=== PATIENT | female | born 1990 | race Caucasian/White ===

== ENCOUNTER → 2018-02-13 20:11 | Outpatient (CLI) | payer BC, SELFPAY ==
[2018-02-17 12:53] LABS: HPV Reflexed? NOT INDICATED
== END ==
PROVIDERS: Referring Provider Obstetrics & Gynecology; Visit Provider Obstetrics & Gynecology
DX: Z12.4 Encounter for screening for malignant neoplasm of cervix (principal)
CPT/HCPCS: 88175; G0145

== ENCOUNTER → 2018-05-08 15:59 | Outpatient (CLI) | payer BC, SELFPAY ==
[2018-05-08 18:10] LABS: Chlamydia Trachomatis by PCR Negative (Negative); Neisserai gonorrhoeae by PCR Negative (Negative); Probe Check PASS; Sample Adequacy Control PASS; Specimen Processing Control PASS
--- OUTSIDE RECORDS SUMMARY | 2018-07-11 04:01 | XMS RPT_ITS ---
:1990 Author Organization OHIP Care Team Providers Name Role Phone Clarisa Mendez Attending Unavailable Clarisa Mendez Referring Unavailable Clarisa Mendez Attending Unavailable Clarisa Mendez Referring Unavailable PROBLEMS PROBLEMS DATE TYPE CONDITION / CODE ATTENDING STATUS SOURCE 05/08/2018 Unknown Z11.3 - Encounter Clarisa Mendez Active [facility] for screening for Community infections with a Hospital predominantly Repository sexual mode of transmission / Z11.3(ICD-10) 02/14/2018 Unknown Z12.4 - Encounter Clarisa Mendez for screening for Community malignant neoplasm Hospital of cervix / Repository Z12.4(ICD-10) PROCEDURES PROCEDURES No Procedure Records FoundRESULTS RESULTS CT/NG [facility] BY PCR Collected: 05/08/2018 Status: F Source: [facility] 1:45 PM [facility] [place] TYPE CODE TESTS RESULT OUT OF RANGE REFERENCE UNITS LAB L8200.2100 Negative Normal Chlam Negative Trac PCR LAB L8200.2200 Negative Normal NG by Negative PCR Performed By: #### L8200.2000 #### [facility] [address] [place], [address] PAP I-G W/RFX HRHPV Collected: 02/13/2018 Status: F Source: [facility] 4:15 PM [facility] Order Comment: CYTOLOGY INFORMATION: - CLINICAL INFORMATION: - DATE LMP/MENOPAUSE: 01/14/18 LMP - COLLECTION VIAL: Thin Prep Vial - PRODUCT SUPPORT TECHNICIAN SOURCE: CERVICAL/ENDOCERVICAL - COLLECTION TECHNIQUE: BRUSH/SPATULA Specimen Comment: [id number] Specimen Comment: Source.............Cervix;Endocervix Specimen Comment: LMP / Prev Treat...TST=[id number] Specimen Comment: No. of containers..01 ThinPrep Vial TYPE CODE TESTS RESULT OUT OF RANGE REFERENCE UNITS LAB L7400.0800 . Normal DIAGN Comment Result Comment: NEGATIVE FOR INTRAEPITHELIAL LESION AND MALIGNANCY. THIS SPECIMEN WAS RESCREENED PART OF OUR VALVE INSERTER PROGRAM. LAB L7400.0900 . Normal ADEQ Comment Result Comment: Satisfactory for evaluation. Endocervical and/or squamous metaplastic cells (endocervical component) are present. LAB L7400.1400 . Normal PERFORM Comment Result Comment: Darlene Avina, Voucher Examiner (ASCP) LAB L7400.1500 . Normal QC Comment REV Result Comment: Sandrine Brown, Supervisory Voucher Examiner (ASCP) LAB L7400.2575 . Normal TEST METHOD Comment Result Comment: This liquid based ThinPrep(R) pap test was screened with the use of an image guided system. LAB L7400.2600 . Normal . COMM LAB L7400.2700 . Normal PAPSMR Comment Result Comment: The Pap smear is a screening test designed to aid in the detection of premalignant and malignant conditions of the uterine cervix. It is not a diagnostic procedure and should not be used as the sole means of detecting cervical cancer. Both false-positive and false-negative reports do occur. LAB L7400.2800 . Normal HPV RFLX Comment Result Comment: The HPV DNA reflex criteria were not met with this specimen result therefore, no HPV testing was performed. Performed at: [address] [id number] Acid Changer: Sydnie Ta MD, Phone: [phone] Performed By: #### L7400.0350 #### [facility] (refer to report for specific site) refer to report for address and phone number ALLERGIES ALLERGIES No Allergies Records FoundENCOUNTERS ENCOUNTERS ADMIT/DISCHARGE ACCOUNT ADMITTING ENCOUNTER LOCATION SOURCE NUMBER CLASS 05/08/2018 [id number] Ambulatory [place] 2 [facility] ing:[facility] Repository 02/13/2018 [id number] Ambulatory [place] [place] 3 [facility] ing:[facility] Repository PAYERS PAYERS ENCOUNTER GUARANTOR PAYER SUBSCRIBER SOURCE 05/08/2018 RUSSELL Primary ZABRINA S [place] [id number] DIAZ Insurance:ANTHEMPolic [facility]ODERDOB[facility] Number[facility] [id number] [facility] [id number]: 330 [id number] Repository [phone] () Date:[id number] [id number] [place] [address] [id number]: 05/08/2018 Secondary NOT GIVENUNK Pr[facility] Insurance:SELF PAY [facility] Number: Effective Repository Date:2018-05-08 02/13/2018 [facility] Primary ZABRINA S [place] [id number] DIAZ Insurance:ANTHEMPolic YODERUNK [facility] Number: [facility] [id number]: 330 [id number] Repository [phone] () Date:[id number] [id number] [place] [address] [id number]: 02/13/2018 Secondary NOT GIVENUNK Pr[facility] Insurance:SELF PAY [facility] Number: Effective Repository Date:2018-02-13
== END ==
PROVIDERS: Referring Provider Obstetrics & Gynecology; Visit Provider Obstetrics & Gynecology
DX: Z11.3 Encounter for screening for infections with a predominantly sexual mode of transmission (principal)
CPT/HCPCS: 87491; 87591

== ENCOUNTER → 2018-05-22 15:32 | Outpatient (CLI) | payer BC, SELFPAY ==
[2018-05-22 17:31] LABS: Absolute Lymphocyte Count 2.44 X10^3/ul (0.83-4.51); Absolute Neutrophil Count 6.4 X10^3/uL (2.0-7.7); Basophil# 0.02 X10^3/uL; Basophil% 0.2 % (0-1); Eosinophil# 0.04 X10^3/uL; Eosinophils% 0.4 % (0-5); Hematocrit 40.7 % (37-47); Hemoglobin 13.3 g/dl (12.0-15.0); Lymphocyte # 2.44 X10^3/ul (4.0); Lymphocyte % 25.9 % (19-41); Mean Corp Hgb Conc 32.7 g/gl (32-36); Mean Corpuscular Hgb 28.7 pg (27.0-32.0); Mean Corpuscular Volume 87.9 fL (81-99); Mean Platelet Vol. 11.3 fl (6.2-12.0); Monocyte# 0.51 X10^3/uL; Monocyte% 5.4 % (0-10); Neutrophil # 6.38 X10^3/uL (2.7-7.7); Neutrophil % 67.8 % (47-70); Platelet Count 272 K/mm3 (150-450); RBC Distribution Width CV 12.5 % (11.6-14.6); RBC Distribution Width SD 39.3 fl (35.1-43.9); Red Blood Count 4.63 M/mm3 (4.2-5.4); White Blood Count 9.4 K/mm3 (4.4-11.0)
[2018-05-22 17:32] LABS: POSITIVE COUNT NO; POSITIVE DIFFERENTIAL NO; POSITIVE MORPHOLOGY NO
[2018-05-22 17:51] LABS: Thyroid Stim Hormone (TSH) 2.98 uIU/mL (0.358-3.74)
[2018-05-22 18:28] LABS: Color, Urine Yellow (Yellow); Glucose, Dipstick Normal (Normal); Ketone-Dipstick Negative (Negative); Leukocyte Esterase-Dipstick 100 /ul (Negative); Nitrite-Dipstick Negative (Negative); Occult Blood-Urine 10 /ul (Negative); Protein-Dipstick Negative (Negative); Specific Gravity, Urine 1.015 (1.002-1.030); Urine Bilirubin Dipstick Negative (Negative); Urine Clarity Cloudy (Clear); Urine Urobilinogen Normal (Normal)
[2018-05-22 18:33] LABS: HIV - WCH Non-Reactive (Nonreactive); Rubella IgG 103.8 IU/mL
[2018-05-25 07:56] LABS: HEPATITIS B SURFACE AG Negative (Negative); Hep C Antibodies <0.1 s/co ratio (0.0-0.9); V-Zoster IgG (Immunity) < 135 index (Immune >165)
[2018-05-25 23:33] LABS: Prenatal RPR NONREACTIVE (NONREACTIVE)
== END ==
PROVIDERS: Visit Provider Obstetrics & Gynecology
DX: Z34.81 Encounter for supervision of other normal pregnancy, first trimester (principal)
CPT/HCPCS: 36415; 81002; 84443; 85025; 86703; 86762; 86787; 86803; 87340

== ENCOUNTER → 2018-10-06 | Outpatient (CLI) | payer BC, SELFPAY ==
[2018-10-06 15:37] LABS: Hematocrit 35.3 % (37-47); Hemoglobin 11.6 g/dl (12.0-15.0); Mean Corp Hgb Conc 32.9 g/gl (32-36); Mean Corpuscular Hgb 28.9 pg (27.0-32.0); Mean Corpuscular Volume 87.8 fL (81-99); Mean Platelet Vol. 10.5 fl (6.2-12.0); Platelet Count 279 K/mm3 (150-450); RBC Distribution Width CV 13.1 % (11.6-14.6); RBC Distribution Width SD 40.6 fl (35.1-43.9); Red Blood Count 4.02 M/mm3 (4.2-5.4); White Blood Count 10.8 K/mm3 (4.4-11.0)
[2018-10-06 15:41] LABS: Glucose Challenge Gest 1H 50g 147 mg/dL (70-140)
[2018-10-06 15:42] LABS: Scan Indicated on CBC? Y/N NO
== END | disposition home or self-care (01) ==
LOC: WOBLAB 13:15
PROVIDERS: Visit Provider Obstetrics & Gynecology
DX: Z34.83 Encounter for supervision of other normal pregnancy, third trimester (principal)
CPT/HCPCS: 36415; 82950; 85027

== ENCOUNTER → 2018-10-20 | Outpatient (CLI) | payer BC, SELFPAY ==
[2018-10-20 11:42] LABS: Glucose GTT-Gestation. Fasting 79 mg/dL (<105)
[2018-10-20 13:19] LABS: Glucose GTT-Gestational 2 Hr 116 mg/dL (<165)
[2018-10-20 13:27] LABS: Glucose GTT-Gestational 1 Hr 136 mg/dL (<190)
[2018-10-20 14:27] LABS: Glucose GTT-Gestational 3 Hr 93 L (<145)
== END | disposition home or self-care (01) ==
LOC: LAB 10:09
PROVIDERS: Referring Provider Obstetrics & Gynecology; Visit Provider Obstetrics & Gynecology
DX: O24.912 Unspecified diabetes mellitus in pregnancy, second trimester (principal); Z3A.00 Weeks of gestation of pregnancy not specified
CPT/HCPCS: 82951; 82952

== ENCOUNTER 2018-11-25 19:11 | Outpatient (CLI) | payer BC, SELFPAY ==
[2018-11-25 19:53] VITALS: BMI 26.6
[2018-11-25 20:30] LABS: ROM Internal Control Test YES-OK TO RESULT pt. (Internal QC); ROM Patient Test Negative (Negative)
[2018-11-25 20:59] LABS: Mucous, Urine 0 SEEN /hpf (<or=2+); Red Blood Cells-Urine 0 SEEN /hpf (0-5)
[2018-11-25 21:07] LABS: Color, Urine Yellow (Yellow); Glucose, Dipstick Normal (Normal); Ketone-Dipstick 15 mg/dl (Negative); Leukocyte Esterase-Dipstick 100 /ul (Negative); Nitrite-Dipstick Negative (Negative); Occult Blood-Urine Negative /ul (Negative); Protein-Dipstick Negative (Negative); Urine Bilirubin Dipstick Negative (Negative); Urine Clarity Clear (Clear); Urine Urobilinogen Normal (Normal)
[2018-11-25 21:12] LABS: Bacteria RARE /hpf (None Seen); Squamous Epithelial Cells - UA 0-5 SEEN /hpf (5-10); White Blood Cells 0-5 SEEN /hpf (0-5)
--- NOTE | 2018-11-25 21:30 | OB.TRI.NOTE ---
- Problem List (1) 35 weeks gestation of Status: Acute History of Present Illness Date of Service: 11/25/18 Was patient seen by the physician?: No Reason For Visit: RULE OUT LABOR Final DEJUAN: 12/24/18 Gestational age: 35 Weeks and 6 Days History of Present Illness: 28yo G1 @ 35 6/7wga with c/o leaking of fluid. Allergies No Known Allergies Allergy (Verified 11/25/18 20:07) Laboratory Studies: Laboratory Tests 11/25/18 11/25/18 11/25/18 Range/Units 20:45 19:35 19:35 Urine Color Yellow (Yellow) Urine Clarity Clear (Clear) Urine pH 7.0 (5.0 - 8.0) Ur Specific [place] 1.010 (1.002-1.030) Urine Protein Negative (Negative) mg/dl Urine Glucose (UA) Normal (Normal) mg/dl Urine Ketones 15 H (Negative) mg/dl Urine Occult Blood Negative (Negative) /ul Urine Nitrite Negative (Negative) Urine Bilirubin Negative (Negative) mg/dL Urine Urobilinogen Normal (Normal) mg/dl Ur Leukocyte Esterase 100 H (Negative) /ul Urine RBC 0 SEEN (0-5) /hpf Urine WBC 0-5 SEEN (0-5) /hpf Ur Squamous Epith Cells 0-5 SEEN (5-10) /hpf Urine Bacteria RARE (None Seen) /hpf Urine Mucus 0 SEEN (<or=2+) /hpf Vag Amniotic Fld Detect Negative (Negative) Group B Strep DNA Negative (Negative) Specimen Comment Not Reportable NST - FHR Rate Baby A Baseline: 130 Variability:: Moderate Accelerations:: 15 x 15 Decelerations:: None NST Reactive:: Yes FHR Category:: Category I Uterine Activity:: 3-4/10 Impression/Plan 28yo G1 @ 35 6/7wga with FALSE LABOR < 37 weeks gestation, Cat I FHR -ROM plus negative -SVE closed per RN Exam - Desmond Scherer -d/c home
[2018-11-25 21:37] LABS: Group B Strep DNA By PCR Negative (Negative); Internal Control PASS; Probe Check PASS; Specimen Processing Control PASS
== END 2018-11-25 20:49 | disposition home or self-care (01) ==
LOC: WPOUT 19:51 → WP 19:52
PROVIDERS: Referring Provider Obstetrics & Gynecology; Visit Provider Obstetrics & Gynecology
DX: O47.03 False labor before 37 completed weeks of gestation, third trimester (principal); Z3A.35 35 weeks gestation of pregnancy
CPT/HCPCS: 59025; 59050; 81001; 84112; 87077; 87081; 87186; 87653; 99218; G0378

== ENCOUNTER 2018-12-18 14:00 | Outpatient (CLI) | payer BC, SELFPAY ==
[2018-12-18 14:25] VITALS: BMI 27.1
--- NOTE | 2018-12-27 12:30 | OB.TRI.NOTE ---
History of Present Illness Reason For Visit: R/O LABOR Final DEJUAN Source: US <20 weeks Allergies No Known Allergies Allergy (Verified 12/19/18 19:39) Impression/Plan History of Present Illness Date of Service: 12/19/18 Was patient seen by the physician?: No Reason For Visit: R/O LABOR Date of Service: 12/19/18 Final DEJUAN: 12/24/18 Final DEJUAN Source: US <20 weeks Gestational age: 39 Weeks and 2 Days History of Present Illness: 28 yo female presents with UCs. no further cervical change with observation. Sent home. False labor vs prodromal labor. Allergies No Known Allergies Allergy (Verified 12/19/18 19:39) NST - FHR Rate Baby A Baseline: 120-130s avg accels. UC q 3-7 min Variability:: Moderate Accelerations:: 15 x 15 Decelerations:: None NST Reactive:: Yes, Appropriate for gestational age FHR Category:: Category I Uterine Activity:: UCs q 3-7 min Impression/Plan 39 2/7 wk primip Contractions. No further change of cervix. Home. Return if inc s/sx of labor.
== END 2018-12-18 16:35 | disposition home or self-care (01) ==
LOC: WPOUT 14:22 → WP 14:24
PROVIDERS: Visit Provider Obstetrics & Gynecology
DX: O62.9 Abnormality of forces of labor, unspecified (principal); Z3A.39 39 weeks gestation of pregnancy
CPT/HCPCS: 59025; 59050; 99218; G0378

== ENCOUNTER 2018-12-19 05:38 | Outpatient (CLI) | payer BC, SELFPAY ==
[2018-12-18 14:25] VITALS: BMI 27.1
[2018-12-19 06:01] VITALS: BMI 27.3
--- NOTE | 2018-12-20 07:38 | OB.TRI.NOTE ---
History of Present Illness Date of Service: 12/19/18 Was patient seen by the physician?: No Reason For Visit: R/O LABOR Date of Service: 12/19/18 Final DEJUAN: 12/24/18 Final DEJUAN Source: US <20 weeks Gestational age: 39 Weeks and 2 Days History of Present Illness: 28 yo female presents with UCs. no further cervical change with observation. Sent home. False labor vs prodromal labor. Allergies No Known Allergies Allergy (Verified 12/19/18 19:39) NST - FHR Rate Baby A Baseline: 120-130s avg accels. UC q 3-7 min Variability:: Moderate Accelerations:: 15 x 15 Decelerations:: None NST Reactive:: Yes, Appropriate for gestational age FHR Category:: Category I Uterine Activity:: UCs q 3-7 min Impression/Plan 39 2/7 wk primip Contractions. No further change of cervix. Home. Return if inc s/sx of labor.
--- NOTE | 2018-12-20 07:42 | OB.TRI.NOTE ---
History of Present Illness Date of Service: 12/18/18 Was patient seen by the physician?: No Reason For Visit: R/O LABOR Date of Service: 12/19/18 Final DEJUAN: 12/24/18 Final DEJUAN Source: US <20 weeks Gestational age: 39 Weeks and 1 Days History of Present Illness: 28 yo female at 391/7 wk presents with UCs. Observed and no further change of cervix. Sent home Allergies No Known Allergies Allergy (Verified 12/19/18 19:39) NST - FHR Rate Baby A Baseline: 120-130s avg with accels to 170s. UCs irreg q 2-5 min Variability:: Moderate Accelerations:: 15 x 15 Decelerations:: None NST Reactive:: Yes, Appropriate for gestational age FHR Category:: Category I Uterine Activity:: UCs q 2-5 mins Impression/Plan 39 1/7 wk false labor Contractions, but no further cervical change. Home to rest. Keep ofc appt as planned. RTO if inc s/sx of labor.
== END 2018-12-19 08:15 | disposition home or self-care (01) ==
LOC: WPOUT 05:45 → WP 05:46
PROVIDERS: Visit Provider Obstetrics & Gynecology
DX: O47.1 False labor at or after 37 completed weeks of gestation (principal); Z3A.39 39 weeks gestation of pregnancy
CPT/HCPCS: 59025; 59050; 99218; G0378

== ENCOUNTER 2018-12-19 19:05 | Inpatient (IN) | payer BC, SELFPAY ==
[2018-12-19 06:01] VITALS: BMI 27.3
[2018-12-19] MEDS: Lactated Ringers 500 ML 999 ML IV ×3 (19:27→21:26)
[2018-12-19 19:39] VITALS: BMI 28.3
[2018-12-19 19:47] LABS: Absolute Lymphocyte Count 1.68 X10^3/uL (0.83-4.51); Absolute Neutrophil Count 8.8 X10^3/uL (2.0-7.7); Basophil# 0.01 X10^3/uL; Basophil% 0.1 % (0-1); Eosinophil# 0.01 X10^3/uL; Eosinophils% 0.1 % (0-5); Hematocrit 34.5 % (37-47); Hemoglobin 11.5 g/dL (12.0-15.0); Lymphocyte # 1.68 X10^3/ul (4.0); Mean Corp Hgb Conc 33.3 g/dL (32-36); Mean Corpuscular Hgb 28.1 pg (27.0-32.0); Mean Corpuscular Volume 84.4 fL (81-99); Mean Platelet Vol. 12.1 fl (6.2-12.0); Monocyte% 5.4 % (0-10); NRBC Flagged by Analyzer 0 % (0-5); Neutrophil # 8.81 X10^3/uL (2.7-7.7); Neutrophil % 78.9 % (47-70); Platelet Count 289 K/mm3 (150-450); RBC Distribution Width CV 13.3 % (11.6-14.6); RBC Distribution Width SD 40.8 fl (35.1-43.9); Red Blood Count 4.09 M/mm3 (4.2-5.4); White Blood Count 11.2 K/mm3 (4.4-11.0)
[2018-12-19] MEDS: Lactated Ringers 1,000 ML 200 ML IV (20:00)
[2018-12-19] MEDS: fentaNYL-bupivacaine (epidural) 100 ML BAG EPIDURAL (20:35)
--- NOTE | 2018-12-19 21:02 | PCM.HP.OB ---
- Problem List (1) 39 weeks gestation of Status: Acute History Date of Admission: 12/19/18 Final DEJUAN: 12/24/18 Gestational age: 39 Weeks and 2 Days History of this : This is a 28 year-old, G [1], P [], at 39 2/7 weeks gestational age with c/o contractions for several days, worsening intensity today. SVE 5cm dilation in triage this evening. Fetus active. Allergies No Known Allergies Allergy (Verified 12/19/18 19:39) Home Medications: Home Medications Docosahexanoic Acid [ Dha] 1 tab PO DAILY 11/25/18 Alcohol: None Number of Fetus(es): 1 NST - FHR Rate Baby A Baseline: 140 Variability:: Moderate Accelerations:: 15 x 15 Decelerations:: None NST Reactive:: Yes FHR Category:: Category I Uterine Activity:: 4/10 min History Past Pregnancies: Past Pregnancies Delivery Date Name GA/Weeks Outcome Route Weight Infant Gender Labor Length Anesthesia Delivery Location Provider FOB Expected Infant Delivery Method: Spontaneous Vaginal Review of Systems Constitutional: Reports: Chills. Denies: Anorexia, Fever Respiratory: Denies: Shortness of Breath Gastrointestinal: Denies: Abdominal Pain, Nausea, Vomiting Physical Exam General: Alert, Oriented x3, Cooperative, No apparent distress HEENT: Atraumatic, Normocephalic Cardiovascular: Regular Rhythm Lungs: Normal air movement Abdomen: Soft, Non Tender, Non-Distended, Gravid Neurological: Neuro grossly intact Estimated gestational size: Appropriate for gestational size Presentation: Cephalic Cervix Dilation (cm): 6 - per CHASITY Rodríguez Station: -1 Effacement (%): 80 Assessment/Plan All Active Problems 35 weeks gestation of (Acute) 39 weeks gestation of (Acute) This is a 28 year-old, G [1], P [], at 39 2/7wga weeks gestational age in active labor. Epidural placed per patient request Continuous monitoring Prior prolonged deceleration x 2 resolved with maternal repositioning. status overall reassuring. Reviewed delivery related risks including potential risks of vs. vacuum vs. delivery and potential for additional surgery including but not limited to d&C, hysterectomy. Blood transfusion acceptable. Patient and given opportunity to ask questions and questions answered to their satisfaction.
--- NOTE | 2018-12-19 22:20 | PCM.PN.BLA ---
Progress Note LABOR PROGRESS NOTE Informed by nursing staff patient with prolonged decelerations and moved to the OR for observation. FHR reported Cat I at time of communication. On my arrival, patient without complaints. AVSS GEN - NAD, AAO x 3 FHR tracing reviewed with prolonged deceleration x 5mintues with FHR in 70s x 3 minutes prior to move to OR. TOCO 3/10 min SVE 6/80/-2 A/P: 28yo G1 @ 39 2/7wga in active labor, Cat II FHR -FHR recovered to Cat I, Amniotomy performed with continued Cat I FHR with baseline increased to 155. -Will move patient back to room and continue to observe in labor.
[2018-12-19] MEDS: Cefazolin 2 GM in 0.9% Normal Saline 100 ML IV (23:51)
[2018-12-20] VITALS (23 sets, daily range): BP systolic 90–115; BP diastolic 44–76; PULSE 65–109; RESP 14–24; TEMP 36.2–37.4; O2SAT 95–100
[2018-12-20] MEDS: Ondansetron 4 MG/2 ML Vial IV (00:05)
[2018-12-20] MEDS: Ketorolac 30 MG/ML Syringe IV ×4 (00:10→18:18)
--- NOTE | 2018-12-20 00:50 | OP.PCM_ITS ---
Problem List (1) 39 weeks gestation of Status: Acute (2) intolerance to labor, delivered, current hospitalization Status: Acute Report of Operation Date of Procedure: 12/19/18 Pre-Operative Diagnosis: 39 2/7wga, labor, Cat II FHR Post-Operative Diagnosis: 39 2/7wga, labor, Category II FHR Delivery Classification: BRENDA Final DEJUAN: 12/24/18 Final DEJUAN Source: US <20 weeks Gestational age: 39 Weeks and 3 Days weight loss physician: Refugio Bear Type of Anesthesia:: Epidural Indications: 28-year-old 1 at 39 2/7 weeks gestational age admitted in active labor. She progressed from 5 7 cm dilation to 6 cm, 80, -2 station with the presence of prolonged heart rate decelerations. This began to occur approximately every hour without further advancing of labor despite amniotomy. Patient was advised to proceed with section. risks, benefits, indications and alternatives were reviewed with the patient and her spouse. Patient agreed to proceed. Indications for : - - intolerance to labor Description of Procedure: The patient was taken to the operating room and spinal analgesia was administered. She is placed in a dorsal supine position with left lateral tilt. The perineum and abdomen were prepped and draped in sterile fashion. And the spinal was found to be adequate. A Pfannenstiel incision was made using a scalpel and brought down to incise the subcutaneous tissue and rectus fascia at the midline. Subcutaneous tissue was bluntly dissected off the fascia laterally. The fascial incision was dissected laterally and cephalad using curved Pagan scissors. The superior leaflet of the rectus fascia was grasped using Dereje clamps and bluntly dissected and sharply dissected from the underlying rectus muscle. In a similar fashion the inferior rectus fascia was dissected from the underlying muscle. The rectus muscles were bluntly at the midline. The peritoneum was identified and entered [sharply]. The bladder blade was placed into the abdomen and the vesicouterine peritoneal fold identified. The fold was incised and a bladder flap created. Bladder blade was then repositioned to the abdomen. A low transverse hysterotomy was made using the [Metzenbaum scissors] to level of the membranes. The hysterotomy was extended bluntly cephalad and caudad. The membranes were then ruptured revealing clear fluid. The head was elevated and brought to the level of the hysterotomy and the infant delivered revealing vigorous [male] . The cord was doubly clamped and cut after 30 seconds. The infant was passed to awaiting [nursery personnel]. The placenta was [expressed] from the uterus and appeared intact on inspection. The uterus was cleared of debris. The hysterotomy was then repaired using 0 Vicryl running lock suture. A second imbricating layer was also placed for additional hemostasis. The bladder blade was removed. The anterior cul-de-sac was cleared of debris. The peritoneum and rectus muscles were reapproximated using 2-0 Vicryl running suture. The rectus fascia was closed using 0 Vicryl running suture. The subcutaneous tissue was sponge irrigated and small capillary bleeding controlled using the Bovie device. The subcutaneous tissue was reapproximated using 2-0 Vicryl. The skin was closed using 4-0 Monocryl subcuticularly by the SUPERVISOR ORCHARD under my supervision Mepilex occlusive dressing was placed over the incision. The fundus was firm. The patient was then transferred to the recovery room without complication. Sponge, instrument, and needle counts were correct ?2. Amniotic Membrane Rupture Type: Artificial Amniotic Fluid Description: Clear Placenta Disposition: [facility] Drain: Horner to straight drain Fluids Replaced: 1000 ml Cord Entanglement: None Nuchal Cord Compression: Without compression Cord Vessel Description: 3 Vessels Esitmated Blood Loss (ml): 900 ml Infant Gender: Male (1 minute): 8 (5 minute): 9 Delayed cord clamping: Yes Antibiotic Given: Ancef 2 grams IV x1, Zithromax 500 mg/5 mL X1 Pt instructed on risks of surgery: Bleeding, Anesthesia Risks, Infection, Injury to surrounding structure(s) including bowel and bladder Complications: None - Admit VTE Documentation VTE Present on Admission: No VTE Mechan Device Prophylaxis: SCD's
[2018-12-20] MEDS: Oxytocin 30 units/NS 500 ml 30 UNITS/500 ML IV.SOLN 167 UNITS IV (01:00)
[2018-12-20] MEDS: Lactated Ringers 1,000 ML 100 ML IV (04:07)
--- NOTE | 2018-12-20 07:53 | PN.OBGYN_ITS ---
Patient Problems: Active and Suspected Problems 39 weeks gestation of (Acute) intolerance to labor, delivered, current hospitalization (Acute) Subjective: Day of Surgery. Primary C/S 39 2/7 wk nonreassuring FHR Doing well. Nursing, but baby is sleepy and stops nursing frequently. Pain control adequate. Objective: Sitting in bed, semi-recumbent, nursing baby. Horner in place. Clear yellow dilute urine noted. - Physical Exam General: Alert, Oriented x3, Cooperative, No apparent distress HEENT: Atraumatic, EOMI Neck: Supple Skin: Incision - Mepilex CDI. Neurological: Cranial nerves II-XII grossly intact Psych/Mental Status: Normal Affect Vital Signs Temp Pulse Resp BP Pulse Ox 99.0 F 65 18 101/65 96 12/20/18 07:46 12/20/18 07:46 12/20/18 07:46 12/20/18 07:46 12/20/18 07:46 Oxygen Delivery Method Room Air Weight: 70.307 kg Body Mass Index (BMI) 28.3 Intake and Output for Last 24 Hours 12/18/18 12/19/18 12/20/18 23:59 23:59 23:59 Intake Total 2105.00 / 2105.00 2603.33 / 2603.33 Output Total 950 / 950 Balance 2105.00 / 2105.00 1653.33 / 1653.33 Laboratory Tests Past 24 Hrs 12/19/18 12/19/18 19:27 19:27 WBC 11.2 H RBC 4.09 L Hgb 11.5 L Hct 34.5 L MCV 84.4 MCH 28.1 MCHC 33.3 RDW Std Deviation 40.8 RDW Coeff of Hannah 13.3 Plt Count 289 MPV 12.1 H Immature Gran % (Auto) 0.500 Neut % (Auto) 78.9 H Lymph % (Auto) 15.0 L Lawrence % (Auto) 5.4 Eos % (Auto) 0.1 Baso % (Auto) 0.1 Absolute Neuts (auto) 8.8 H Absolute Lymphs (auto) 1.68 Nucleated RBC % 0 Blood Type O POSITIVE Antibody Screen NEGATIVE Medical Necessity - Tobacco Use Smoking Status: Never smoker Assessment/Plan All Active Problems 39 weeks gestation of (Acute) intolerance to labor, delivered, current hospitalization (Acute) Day of Surgery AVSS Stable postop. Horner in place. Will d/c by tomorrow am for voiding trial. Continue toradol for 48 hr postop. May shower. Inc diet and activity as tolerated. Continue routine postop care
--- NOTE | 2018-12-20 07:56 | DCINST_ITS ---
Discharge Diet: No Restrictions Discharge Activity: May Shower, May Take a Tub Bath May resume sexual activity in: 4-6 weeks Lifting Restrictions: 20 pounds Additional Activity Instructions:: Nothing in the vagina for 4-6 weeks. You may return to work/school in 6 weeks. Change Dressing in (Days):: 7 Remove Dressing in (days):: 7 Cleanse incision/area with: Soap & Water, Keep Dressing Clean & Dry Additional Instructions: If you experience any of the following, contact your healthcare provider. * Bleeding that soaks a pad every hour for 2 hours * Fever 100.4 or higher * Unrelieved incision or abdominal pain * Swelling, redness, discharge or bleeding from your incision * Problems urinating (including inability to urinate or burning while urinating). * Visual changes * Severe headache * Flu-like symptoms * Pain or redness in one of both of your breasts * Pain, warmth, tenderness or swelling in your legs, especially the calf area * Frequent nausea and vomiting * Symptoms of depression or anxiety If you experience any of the following, call 911 or go to the nearest Emergency Room. * Chest pain * Problems breathing * Seizure activity * Partial or complete paralysis of a body part, slurred speech, weakness or drooping of the face, or a sudden inability to walk or hold your balance Allergies/Adverse Reactions: Allergies No Known Allergies Allergy (Verified 12/19/18 19:39) Medications to take at Discharge Docosahexanoic Acid [ Dha] 1 tab PO DAILY 11/25/18 Docusate Sodium [Colace] 100 mg PO BID #30 cap 12/20/18 Naproxen [Naprosyn] 250 - 500 mg PO TID PRN PRN #30 tab 12/20/18 Oxycodone [Oxyir] 5 - 10 mg PO Q6H PRN PRN 3 Days #15 tablet 12/20/18 Polyethylene Glycol 3350 [Miralax] 17 gm PO DAILY PRN #14 packet 12/20/18 The following prescriptions were given: Docusate Sodium [Colace] 100 mg PO BID #30 cap Transmission Status: Pending to [id number] Polyethylene Glycol 3350 [Miralax] 17 gm PO DAILY PRN #14 packet PRN Reason: Constipation Transmission Status: Pending to [id number] Naproxen [Naprosyn] 250 - 500 mg PO TID PRN PRN #30 tab PRN Reason: Mild-Mod Pain (1-08/25) Transmission Status: Pending to [id number] Oxycodone [Oxyir] 5 - 10 mg PO Q6H PRN PRN 3 Days #15 tablet PRN Reason: Mod-Severe Pain (-01/25) Transmission Status: Received by [id number] Follow-Up: Call to make an appointment with your doctor for an incision check in 1-2 weeks. You will also need a 6 week post- follow up appointment. Test results from this visit will be discussed in further detail at your follow- up appointment, if applicable. Please Follow Up With: Clarisa Mendez MD - [phone] When: Call to make an appointment for an incision check in 2 weeks. Primary Care Physician: Care Physician,No Primary [Primary Care Provider] - Proposed Discharge Date: 12/23/18
[2018-12-20 10:17] LABS: Hematocrit 26.9 % (37-47); Hemoglobin 8.6 g/dL (12.0-15.0); Mean Corpuscular Hgb 28.1 pg (27.0-32.0); Mean Corpuscular Volume 87.9 fL (81-99); Mean Platelet Vol. 12.1 fl (6.2-12.0); Platelet Count 217 K/mm3 (150-450); RBC Distribution Width CV 13.5 % (11.6-14.6); RBC Distribution Width SD 43.2 fl (35.1-43.9); Red Blood Count 3.06 M/mm3 (4.2-5.4); White Blood Count 12.4 K/mm3 (4.4-11.0)
[2018-12-20 10:25] LABS: Scan Indicated on CBC? Y/N NO
[2018-12-20] MEDS: 0.9% Saline Lock 10 ML Syringe IV ×2 (12:05→18:18)
--- NOTE | 2018-12-20 17:23 | NURSING ---
1400 epidural cath removed easily blue tip intacted
[2018-12-21 00:15] VITALS: BP 102/56; PULSE 88; RESP 16; TEMP 36.7; O2SAT 98
[2018-12-21] MEDS: Ketorolac 30 MG/ML Syringe IV ×4 (00:27→18:50)
[2018-12-21] MEDS: 0.9% Saline Lock 10 ML Syringe IV ×6 (00:27→18:50)
[2018-12-21 04:39] VITALS: BP 96/52; PULSE 76; RESP 16; TEMP 36.6
[2018-12-21 06:10] LABS: Hematocrit 24.6 % (37-47); Hemoglobin 7.9 g/dL (12.0-15.0); Mean Corp Hgb Conc 32.1 g/dL (32-36); Mean Corpuscular Hgb 28.2 pg (27.0-32.0); Mean Corpuscular Volume 87.9 fL (81-99); Mean Platelet Vol. 11.5 fl (6.2-12.0); Platelet Count 205 K/mm3 (150-450); RBC Distribution Width CV 13.9 % (11.6-14.6); RBC Distribution Width SD 44.6 fl (35.1-43.9); White Blood Count 9.7 K/mm3 (4.4-11.0)
--- NOTE | 2018-12-21 07:43 | PCM.PN.OB ---
Patient Problems: Active and Suspected Problems 39 weeks gestation of (Acute) intolerance to labor, delivered, current hospitalization (Acute) Subjective: POD#1 primary C section, nonreassuring FHR Doing well. neg flatus but feels some movement, anticipates flatus soon. no N/V. Breast feeding. Pain control adequate. Tolerating diet. Voiding well after Horner out. No concerns voiced. - Physical Exam General: Alert, Oriented x3, Cooperative, No apparent distress HEENT: Atraumatic, EOMI Neck: Supple Abdomen: Soft - minimally tympanitic. Fundus firm minimally tender c/w postop status at 1-2 cm inferior to umbilicus. Skin: Incision - CDI. Mepilex in place. Psych/Mental Status: Normal Affect Vital Signs Temp Pulse Resp BP Pulse Ox 97.8 F 76 16 96/52 L 98 12/21/18 04:39 12/21/18 04:39 12/21/18 04:39 12/21/18 04:39 12/21/18 00:15 Oxygen Delivery Method Room Air Weight: 70.307 kg Body Mass Index (BMI) 28.3 Intake and Output for Last 24 Hours 12/19/18 12/20/18 12/21/18 23:59 23:59 23:59 Intake Total 2105.00 / 2105.00 2996.66 / 2996.66 Output Total 2350 / 2350 Balance 2105.00 / 2105.00 646.66 / 646.66 Laboratory Tests Past 24 Hrs 12/20/18 12/21/18 09:00 05:50 WBC 12.4 H 9.7 RBC 3.06 L 2.80 L Hgb 8.6 L 7.9 L Hct 26.9 L 24.6 L MCV 87.9 87.9 MCH 28.1 28.2 MCHC 32.0 32.1 RDW Std Deviation 43.2 44.6 H RDW Coeff of Hannah 13.5 13.9 Plt Count 217 205 MPV 12.1 H 11.5 Medical Necessity - Tobacco Use Smoking Status: Never smoker Assessment/Plan All Active Problems 39 weeks gestation of (Acute) intolerance to labor, delivered, current hospitalization (Acute) POD#1 Primary C Section Nonreassuring FHT AVSS Stable postop. Continue toradol for 48 hr postop. May shower. Inc diet and activity as tolerated. Continue routine postop care
[2018-12-21 08:20] VITALS: BP 92/50; PULSE 71; RESP 16; TEMP 36.3; O2SAT 96
[2018-12-21] MEDS: Ferrous Gluconate 324 MG Tablet PO ×2 (09:17→17:51)
--- NOTE | 2018-12-21 11:00 | NURSING ---
Patient ambulating with baby in the crib and with the father of the baby around the hallway. Gait steady. Tolerated well.
[2018-12-21 14:58] VITALS: BP 107/71; PULSE 105; RESP 18; TEMP 36.8
[2018-12-21 20:56] VITALS: BP 111/72; PULSE 91; RESP 16; TEMP 36.6
[2018-12-22 02:29] VITALS: BP 104/65; PULSE 82; RESP 16; TEMP 36.5
[2018-12-22] MEDS: Ferrous Gluconate 324 MG Tablet PO (07:56)
--- NOTE | 2018-12-22 09:21 | PCM.PN.OB ---
Patient Problems: Active and Suspected Problems 39 weeks gestation of (Acute) intolerance to labor, delivered, current hospitalization (Acute) Subjective: Patient without complaints. Tolerating diet well. Positive flatus. Minimal vaginal bleeding. Ready to go home today. - Physical Exam Vital Signs Temp Pulse Resp BP Pulse Ox 97.7 F L 82 16 104/65 96 12/22/18 02:29 12/22/18 02:29 12/22/18 02:29 12/22/18 02:12/21/18 08:20 Oxygen Delivery Method Room Air Weight: 155 lb Body Mass Index (BMI) 28.3 Intake and Output for Last 24 Hours 12/20/18 12/21/18 12/22/18 23:59 23:59 23:59 Intake Total 2996.66 / 2996.66 Output Total 2350 / 2350 Balance 646.66 / 646.66 Medical Necessity - Tobacco Use Smoking Status: Never smoker Assessment/Plan All Active Problems 39 weeks gestation of (Acute) intolerance to labor, delivered, current hospitalization (Acute) Doing well day #3 status post emergency for increasing stress and failure to progress. Will discharge to home with routine instructions. Follow-up 1 week and 6 weeks.
[2018-12-22 09:22] VITALS: BP 103/73; PULSE 93; RESP 16; TEMP 36.8
--- NOTE | 2018-12-22 09:23 | PCM.DC.BLA ---
Discharge Summary Date of Admission: 12/19/18 Date of Discharge: 12/22/18 Summary: Admission diagnosis: Term intrauterine in labor Discharge diagnosis: Term intrauterine in labor, increasing stress, failure to progress Procedure: Primary low transverse cervical section on December 19, 2018 HPI: Uneventful care. PE: Unremarkable. Hospital Course: The patient is a 28 year old G 1 P 0 who presented to L and D at 39+ weeks gestation. She subsequently had a primary for increasing stress and failure to progress. Postoperatively she did well demonstrating a stable HGB on POD 1 and bowel fxn by POD 3 at which time it was felt she was ready for discharge. Homegoing Instruction: She was instructed not to drive for several days or if using narcotic pain medication, not to put anything in the vagina for 4 weeks, not to lift >25 lbs for 6 weeks and to call the office for an appointment in 2 weeks and 6 weeks. Discharge Medications: She was given a prescription for Oxycodone and Colace and also plans to use Aleve or Motrin or Tylenol at home as needed for pain and constipation. Patient Problems: Active and Suspected Problems 39 weeks gestation of (Acute) intolerance to labor, delivered, current hospitalization (Acute) - Physical Exam Vital Signs Temp Pulse Resp BP Pulse Ox 97.7 F L 82 16 104/65 96 12/22/18 02:29 12/22/18 02:29 12/22/18 02:29 12/22/18 02:29 12/21/18 08:20 Oxygen Delivery Method Room Air Weight: 155 lb Body Mass Index (BMI) 28.3 Intake and Output for Last 24 Hours 12/20/18 12/21/18 12/22/18 23:59 23:59 23:59 Intake Total 2996.66 / 2996.66 Output Total 2350 / 2350 Balance 646.66 / 646.66
[2018-12-22] MEDS: Ibuprofen 600 MG Tablet PO (13:42)
[2018-12-22 14:00] VITALS: BP 120/73; PULSE 82; RESP 16; TEMP 36.2
== END 2018-12-22 16:00 | disposition home or self-care (01) | DRG 788 ==
PROVIDERS: Obstetrics & Gynecology; Admitting Provider Obstetrics & Gynecology; Visit Provider Obstetrics & Gynecology
DX: O76 Abnormality in fetal heart rate and rhythm complicating labor and delivery (principal); Z37.0 Single live birth; Z3A.39 39 weeks gestation of pregnancy; O62.2 Other uterine inertia
CPT/HCPCS: 59025; 59050; 85025; 85027; 86850; 86900; 86901; 99218; J7120; A4216; G0378; J2405

== ENCOUNTER → 2020-01-17 09:48 | Outpatient (CLI) | payer BC, SELFPAY ==
[2020-01-19 03:07] LABS: Chlamydia By Nucleic Acid AMP Negative (Negative)
[2020-01-19 06:15] LABS: Gonococcus By Nucleic Acid AMP Negative (Negative)
== END ==
PROVIDERS: Visit Provider Student in an Organized Health Care Education/Training Program
DX: Z11.3 Encounter for screening for infections with a predominantly sexual mode of transmission (principal)
CPT/HCPCS: 87491; 87591

== ENCOUNTER → 2020-01-28 09:27 | Outpatient (CLI) | payer BC, SELFPAY ==
[2020-01-28 11:57] LABS: Absolute Lymphocyte Count 2.01 X10^3/uL (0.83-4.51); Absolute Neutrophil Count 7.3 X10^3/uL (2.0-7.7); Basophil# 0.04 X10^3/uL; Basophil% 0.4 % (0-1); Hematocrit 39.3 % (37-47); Hemoglobin 12.7 g/dL (12.0-15.0); Lymphocyte # 2.01 X10^3/ul (4.0); Lymphocyte % 20.2 % (19-41); Mean Corp Hgb Conc 32.3 g/dL (32-36); Mean Corpuscular Hgb 29.1 pg (27.0-32.0); Mean Corpuscular Volume 90.1 fL (81-99); Mean Platelet Vol. 11.3 fl (6.2-12.0); Monocyte# 0.51 X10^3/uL; Monocyte% 5.1 % (0-10); NRBC Flagged by Analyzer 0 % (0-5); Neutrophil # 7.25 X10^3/uL (2.7-7.7); Neutrophil % 72.9 % (47-70); Platelet Count 298 K/mm3 (150-450); RBC Distribution Width SD 43.1 fl (35.1-43.9); Red Blood Count 4.36 M/mm3 (4.2-5.4)
[2020-01-28 13:54] LABS: HIV - WCH Non-Reactive (Nonreactive); Hepatitis B Surface Antigen Non-Reactive (Nonreactive); Hepatitis C Antibody Non-Reactive (Nonreactive); Rubella IgG 100.9 IU/mL
[2020-01-28 18:13] LABS: Amphetamine Urine VISTA NEGATIVE (<1000 ng/mL); Barbiturate Urine VISTA NEGATIVE (< 200 ng/mL); Benzodiazepine Urine VISTA NEGATIVE (< 200 ng/mL); Cocaine Urine VISTA NEGATIVE (< 300 ng/mL); Ecstacy Urine VISTA NEGATIVE (< 500 ng/mL); Methadone Urine VISTA NEGATIVE (< 300 ng/mL); PCP Urine VISTA NEGATIVE (< 25 ng/mL); THC Urine VISTA NEGATIVE (< 50 ng/mL); Vista UDS pH Range 6
[2020-01-28 18:17] LABS: Color, Urine Yellow (Yellow); Glucose, Dipstick Normal (Normal); Ketone-Dipstick Negative (Negative); Leukocyte Esterase-Dipstick 25 /ul (Negative); Nitrite-Dipstick Negative (Negative); Occult Blood-Urine Negative /ul (Negative); Protein-Dipstick Negative (Negative); Specific Gravity, Urine 1.015 (1.002-1.030); Urine Bilirubin Dipstick Negative (Negative); Urine Clarity Cloudy (Clear); Urine Urobilinogen Normal (Normal)
[2020-01-30 04:32] LABS: V-Zoster IgG (Immunity) < 135 index (Immune >165)
[2020-01-31 01:46] LABS: Prenatal RPR NONREACTIVE (NONREACTIVE)
== END ==
PROVIDERS: Visit Provider Student in an Organized Health Care Education/Training Program
DX: Z34.81 Encounter for supervision of other normal pregnancy, first trimester (principal)
CPT/HCPCS: 36415; 80307; 81002; 85025; 86703; 86762; 86787; 86803; 87340

== ENCOUNTER → 2020-05-12 10:29 | Outpatient (CLI) | payer BC, SELFPAY ==
[2020-05-12 11:01] LABS: Hematocrit 34.8 % (37-47); Hemoglobin 11.2 g/dL (12.0-15.0); Mean Corp Hgb Conc 32.2 g/dL (32-36); Mean Corpuscular Hgb 29.6 pg (27.0-32.0); Mean Corpuscular Volume 92.1 fL (81-99); Mean Platelet Vol. 10.3 fl (6.2-12.0); Platelet Count 267 K/mm3 (150-450); RBC Distribution Width SD 43.6 fl (35.1-43.9); Red Blood Count 3.78 M/mm3 (4.2-5.4)
[2020-05-12 11:07] LABS: Glucose Challenge Gest 1H 50g 113 mg/dL (70-140)
== END ==
PROVIDERS: Visit Provider Student in an Organized Health Care Education/Training Program
DX: Z34.82 Encounter for supervision of other normal pregnancy, second trimester (principal)
CPT/HCPCS: 36415; 82950; 85027

== ENCOUNTER 2020-07-04 14:56 | Outpatient (RCR) | payer BC, SELFPAY ==
[2020-07-04] MEDS: COVID-19 VACC, MRNA(PFIZER)/PF 30 MCG/0.3 ML SYRINGE IM (15:49)
[2020-07-25] MEDS: COVID-19 VACC, MRNA(PFIZER)/PF 30 MCG/0.3 ML SYRINGE IM (15:36)
== END 2020-07-04 23:59 ==
LOC: IMMUN 14:56
PROVIDERS: Visit Provider Family Medicine
DX: Z23 Encounter for immunization (principal)
CPT/HCPCS: 0001A; 0002A; 91300

== ENCOUNTER → 2020-08-07 | Outpatient (CLI) | payer BC, SELFPAY | END | disposition home or self-care (01) | LOC: LABSPEC 12:42 | PROVIDERS: Referring Provider Student in an Organized Health Care Education/Training Program; Visit Provider Student in an Organized Health Care Education/Training Program | DX: Z36.85 Encounter for antenatal screening for Streptococcus B (principal) | CPT/HCPCS: 87077; 87081; 87186 ==

== ENCOUNTER 2020-08-25 05:04 | Inpatient (IN) | payer BC, SELFPAY ==
[2020-08-25] VITALS (17 sets, daily range): BP systolic 95–116; BP diastolic 44–76; PULSE 63–92; RESP 14–18; TEMP 36.1–36.8; O2SAT 97–100; BMI 26.2
[2020-08-25] MEDS: Lactated Ringers 1,000 ML 999 ML IV (05:30)
[2020-08-25 05:45] LABS: Absolute Lymphocyte Count 2.89 X10^3/uL (0.83-4.51); Absolute Neutrophil Count 5.2 X10^3/uL (2.0-7.7); Basophil# 0.05 X10^3/uL; Basophil% 0.6 % (0-1); Eosinophil# 0.07 X10^3/uL; Eosinophils% 0.8 % (0-5); Hemoglobin 10.9 g/dL (12.0-15.0); Lymphocyte # 2.89 X10^3/ul (0.83-4.51); Lymphocyte % 33.4 % (19-41); Mean Corp Hgb Conc 31.1 g/dL (32-36); Mean Corpuscular Hgb 26.3 pg (27.0-32.0); Mean Corpuscular Volume 84.3 fL (81-99); Mean Platelet Vol. 11.9 fl (6.2-12.0); Monocyte# 0.42 X10^3/uL; Monocyte% 4.9 % (0-10); NRBC Flagged by Analyzer 0 % (0-5); Neutrophil # 5.19 X10^3/uL (2.7-7.7); Platelet Count 267 K/mm3 (150-450); RBC Distribution Width CV 13.3 % (11.6-14.6); RBC Distribution Width SD 41.1 fl (35.1-43.9); Red Blood Count 4.15 M/mm3 (4.2-5.4); White Blood Count 8.7 K/mm3 (4.4-11.0)
[2020-08-25] MEDS: Acetaminophen 500 MG Tablet 1000 MG PO ×3 (06:11→18:14)
[2020-08-25] MEDS: Lactated Ringers 1,000 ML 150 ML IV (06:31)
[2020-08-25] MEDS: Sodium Citrate/Citric Acid 30 ML UDC PO (07:12)
--- NOTE | 2020-08-25 07:17 | PCM.HP.OB ---
HPI - General General Date of Admission: 08/25/20 HPI Narrative 30-year-old G2, P1 at 39/0 weeks, DEJUAN 09/01/2020 by LMP, admitted for repeat section. Denies contractions, leaking of fluid, vaginal bleeding. Reports movement. Denies headache, vision changes, chest pain, shortness of breath, nausea/vomiting, constipation/diarrhea, fevers or chills. uncomplicated. [facility] [place] Medical History Family history of hearing loss at age younger than 7 years Home Medications [id number] [] 1 tab PO DAILY 08/25/20 [History Last Taken 08/24/20 08:00] Allergy/AdvReac Type Severity Reaction Status Date / Time No Known Allergies Allergy Verified 08/25/20 05:28 Surgical History Previous section Social History Smoking Status: Never smoker History Elective abortions Hx Para 1 Spontaneous abortions Hx # Term Pregnancies Ectopic pregnancies Hx # Pregnancies Multiple births # of living children 1 ROS Constitutional Constitutional: Reports as per HPI ENT HEENT: Reports systems reviewed and no addt'l complaints, except as documented Cardiovascular Cardiovascular: Reports systems reviewed and no addt'l complaints, except as documented Respiratory/Chest Respiratory/Chest: Reports systems reviewed and no addt'l complaints, except as documented Gastrointestinal Gastrointestinal: Reports systems reviewed and no addt'l complaints, except as documented Genitourinary Genitourinary: Reports systems reviewed and no addt'l complaints, except as documented Musculoskeletal Musculoskeletal: Reports systems reviewed and no addt'l complaints, except as documented Integumentary Integumentary: Reports systems reviewed and no addt'l complaints, except as documented Neurologic Neurologic: Reports systems reviewed and no addt'l complaints, except as documented Psychiatric Psychiatric: Reports systems reviewed and no addt'l complaints, except as documented Endocrine Endocrinology: Reports systems reviewed and no addt'l complaints, except as documented Hematologic/Lymphatic Hematologic/Lymphatic: Reports systems reviewed and no addt'l complaints, except as documented Allergic/Immunologic Allergic/Immunologic: Reports systems reviewed and no addt'l complaints, except as documented Vital Signs Vital Signs Vital Signs: 08/25/20 06:38 Temperature 98.0 F Temperature Source Temporal Pulse Rate 92 Respiratory Rate 18 Blood Pressure 113/76 Blood Pressure Mean 88 Blood Pressure Source Monitor Blood Pressure Position Semi-Fowlers Blood Pressure Location Right Arm Pulse Ox 97 Oxygen Delivery Method Room Air Physical Exam Const alert, oriented x3 and no apparent distress HEENT normocephalic Head and Scalp: atraumatic Eyes PERRL Neck full ROM Resp normal respiratory effort and clear to auscultation bilaterally Cardio regular rate and regular rhythm GI normal to inspection, nondistended, normoactive bowel sounds GI Narrative: gravid Back/Spine normal ROM Extremity normal to inspection and no pedal edema Skin no rashes or lesions noted Psych mental status grossly normal and affect normal Assessment & Plan (1) 39 weeks gestation of : PLAN: 30-year-old G2, P1 at 39/0 weeks, DEJUAN 09/01/2020 by LMP, admitted for repeat section. 2 gm Ancef preop. GBS pos. Routine orders. Borderline anemia of , repeat CBC in AM.
[2020-08-25] MEDS: Cefazolin 2 GM in 0.9% Normal Saline 100 ML IV (07:18)
--- NOTE | 2020-08-25 07:24 | PCM.DC ---
Discharge Instructions Diet Discharge Diet: No restrictions Activity Discharge Activity: Return to Normal Activity, May not drive while taking narcotic pain medications. and May Shower May resume sexual activity in: 4-6 weeks Weight Bearing Status: Weight bearing as tolerated Lifting Restrictions: No greater than 20-25 pounds Dressing / Incision Call your doctor if your incision/area has: Continuous Slow Oozing, Increased Redness and Foul Smelling Discharge Call your doctor if you observe: Fever of 101 or Higher, Inability to urinate, Inability to have a bowel movement, Using more than one pad per hour, Shortness of breath, Dizziness, Fainting spells, Chest pain and Calf discomfort Remove Dressing in: 5 days Cleanse incision/area with: Soap & Water and Keep Dressing Clean & Dry Follow Up Care Please Follow Up With: Bel Pugh When: 2 week post operative, 6 week Test Results: Test results from this visit will be discussed in further detail at your follow-up appointment, if applicable. Discharge Plan Admission Admit Date/Time: 08/25/20 05:04 Attending Provider: Bel Pugh Primary Care Provider: Care Physician,Francesca Primary Discharge Orders/Prescriptions Prescriptions: No Action 1 mg Tablet 1 tab PO DAILY RF: 0 Referrals / Follow Up: Care Physician,No Primary [Primary Care Provider] - Disposition Disposition (needs filled in before D/C Order can be placed): Home, self care
--- NOTE | 2020-08-25 08:26 | PCM.OPRPT ---
Report of Operation Date of Procedure: 08/25/20 Pre-Operative Diagnosis: Lopez intrauterine at 39/0 weeks. Repeat section. Post-Operative Diagnosis: Lopez intrauterine at 39/0 weeks. Repeat section. Surgery/Procedure Performed:: Repeat section Description of Surgical Findings:: Normal-appearing uterus, bilateral fallopian tubes and ovaries. Type of Anesthesia: Spinal Specimen's removed: None Estimated Blood Loss (mL): 700 cc Fluids Replaced: 600 cc Description of Procedure: Patient taken to the operating room spinal anesthesia placed. Patient placed in the supine position with a left lateral tilt. Prepped and draped in usual sterile fashion. Pfannenstiel skin incision made with scalpel and carried down through subcutaneous tissue. Fascia nicked on either side of the midline and extended bilaterally using Pagan scissors. Dereje clamps grasped superior fascial edge which was tented up and underlying rectus muscles were dissected off bluntly and sharply at midline using Pagan scissors. Dereje clamps moved to inferior fascial edge which was tented up and underlying rectus muscles were dissected off in a similar manner. Hemostats utilized to separate rectus muscle superiorly. Hemostats grasped peritoneum which was incised medially with Metzenbaum scissors. Peritoneum entered, extended bluntly. Bladder blade placed. Vesicouterine peritoneum identified and bladder flap created using Metzenbaum scissors. Low transverse uterine incision made with scalpel and extended bluntly. Clear fluid. Hand placed into the uterus, head elevated. With the assistance of gentle fundal pressure head delivered followed by body. No nuchal cord. Cord clamped and cut baby handed to nursing. Spontaneous delivery of placenta. Uterus exteriorized and cleared of all clots with lap. Hysterotomy closed with a running locking stitch followed by a second vertical imbricating stitch. Hemostatic. Uterus replaced into the abdomen, confirmed hemostasis. Peritoneum closed with a running stitch. Fascia closed with running stitch. Skin closed with running subcuticular stitch. At the end of the procedure all needle, lap, sponge counts were correct x3. Urine output: 150 cc Apgars: 9/9 Complications None
[2020-08-25] MEDS: Oxytocin 30 units/NS 500 ml 30 UNITS/500 ML IV.SOLN 167 UNITS IV (08:35)
[2020-08-25] MEDS: Ketorolac 30 MG/ML Syringe IV ×3 (09:00→20:50)
[2020-08-25] MEDS: Senna/Docusate Sodium 1 Tablet PO (11:32)
[2020-08-25] MEDS: Lactated Ringers 1,000 ML 100 ML IV (11:35)
[2020-08-25] MEDS: Enoxaparin 40 MG/0.4 ML Syringe SC (20:50)
[2020-08-26] MEDS: Acetaminophen 500 MG Tablet 1000 MG PO ×4 (00:53→17:51)
[2020-08-26 00:55] VITALS: BP 102/61; PULSE 71; RESP 16
[2020-08-26 04:16] VITALS: BP 94/56; PULSE 73; RESP 16; TEMP 36.6
[2020-08-26] MEDS: Ketorolac 30 MG/ML Syringe IV (04:21)
[2020-08-26] MEDS: 0.9% Saline Lock 10 ML Syringe IV (04:21)
[2020-08-26 04:48] LABS: Hematocrit 29.4 % (37-47); Hemoglobin 9.1 g/dL (12.0-15.0); Mean Corpuscular Hgb 26.5 pg (27.0-32.0); Mean Corpuscular Volume 85.5 fL (81-99); Mean Platelet Vol. 11.6 fl (6.2-12.0); Platelet Count 189 K/mm3 (150-450); RBC Distribution Width CV 13.3 % (11.6-14.6); RBC Distribution Width SD 41.7 fl (35.1-43.9); Red Blood Count 3.44 M/mm3 (4.2-5.4); White Blood Count 9.5 K/mm3 (4.4-11.0)
--- NOTE | 2020-08-26 06:05 | PCM.PN.OB ---
Subjective Subjective: Postop day 1. Feeling sore but pain controlled. Did not get much sleep overnight. Lochia minimal. Objective Data Objective Data Vital Signs: Vital Signs Temp Pulse Resp BP Pulse Ox 98 F 73 16 94/56 L 98 08/26/20 04:16 08/26/20 04:16 08/26/20 04:16 08/26/20 04:16 08/25/20 20:39 Oxygen Delivery Method Room Air Weight: 65.045 kg Body Mass Index (BMI) 26.2 Intake & Output: Intake and Output for Last 24 Hours 08/24/20 08/25/20 08/26/20 23:59 23:59 23:59 Intake Total 2770.83 / 2770.83 Output Total 1875 / 1875 Balance 895.83 / 895.83 Lab / Micro Data Result Diagrams: 08/26/20 04:30 Labs: Laboratory Results - last 24 hr 08/25/20 08/26/20 05:30 04:30 WBC 9.5 RBC 3.44 L Hgb 9.1 L Hct 29.4 L MCV 85.5 MCH 26.5 L MCHC 31.0 L RDW Std Deviation 41.7 RDW Coeff of Hannah 13.3 Plt Count 189 MPV 11.6 Blood Type O POSITIVE Antibody Screen NEGATIVE ROS Constitutional Constitutional: Denies fever(s) ENT HEENT: Denies dizziness or headache(s) Cardiovascular Cardiovascular: Denies chest pain or dyspnea Respiratory/Chest Respiratory/Chest: Denies cough Gastrointestinal Gastrointestinal: Denies change in bowel habits, constipation, diarrhea or vomiting Genitourinary Genitourinary: Denies difficulty urinating Musculoskeletal Musculoskeletal: Denies difficulty walking Neurologic Neurologic: Denies headache(s) or syncope Physical Exam Const alert, oriented x3 and no apparent distress HEENT normocephalic Head and Scalp: atraumatic Neck full ROM Resp normal respiratory effort Cardio regular rate GI normal to inspection, nondistended, normoactive bowel sounds GI Narrative: Uterus 2 cm below umbilicus. Dressing clean and dry Extremity no pedal edema Skin no rashes or lesions noted Neuro no focal motor deficits Psych mental status grossly normal and affect normal Assessment & Plan (1) Delivery by section: PLAN: Postop day 1 status post repeat section. Chronic anemia, iron supplement 3 times weekly at home. Breast-feeding going well. Home tomorrow.
[2020-08-26 08:56] VITALS: BP 109/70; PULSE 89; RESP 18; TEMP 36.7; O2SAT 96
[2020-08-26] MEDS: Ibuprofen 600 MG Tablet PO ×3 (09:06→21:03)
[2020-08-26] MEDS: Senna/Docusate Sodium 1 Tablet PO (09:07)
[2020-08-26 13:55] VITALS: BP 111/66; PULSE 90; RESP 16; TEMP 36.8; O2SAT 96
[2020-08-26 20:55] VITALS: BP 124/65; PULSE 77; RESP 16; TEMP 36.6; O2SAT 97
[2020-08-26] MEDS: Enoxaparin 40 MG/0.4 ML Syringe SC (21:03)
[2020-08-27] MEDS: Acetaminophen 500 MG Tablet 1000 MG PO ×3 (00:56→11:53)
[2020-08-27 03:00] VITALS: BP 116/76; PULSE 85; RESP 16; TEMP 36.6; O2SAT 96
[2020-08-27] MEDS: Ibuprofen 600 MG Tablet PO ×2 (03:07→10:46)
[2020-08-27 07:50] VITALS: BP 110/74; PULSE 81; RESP 12; TEMP 36.6; O2SAT 95
--- NOTE | 2020-08-27 08:38 | PN.OBGYN_ITS ---
Subjective Subjective Pain controlled, out of bed, ambulating without difficulty. Voiding without difficulty. Passing flatus and had bowel movement. Tolerates PO without nausea or vomiting. Denies heavy lochia. Objective Data Objective Data Vital Signs: Vital Signs Temp Pulse Resp BP Pulse Ox 97.9 F 81 12 110/74 95 08/27/20 07:50 08/27/20 07:50 08/27/20 07:50 08/27/20 07:50 08/27/20 07:50 Oxygen Delivery Method Room Air Weight: 65.045 kg Body Mass Index (BMI) 26.2 Intake & Output: Intake and Output for Last 24 Hours 08/25/20 08/26/20 08/27/20 23:59 23:59 23:59 Intake Total 2770.83 / 2770.83 Output Total 1875 / 1875 Balance 895.83 / 895.83 Lab / Micro Data Result Diagrams: 08/26/20 04:30 Physical Exam Const alert, oriented x3 and no apparent distress Resp normal respiratory effort, normal air movement and clear to auscultation bila terally Cardio regular rate, regular rhythm, S1 normal heart sound and S2 normal heart sound GI normal to inspection, nondistended, normoactive bowel sounds, soft to palpation, non-tender and non-distended Manual OB Exam: other lochia scant Uterus Palpation: uterus fundus firm Extremity no calf tenderness Assessment & Plan (1) Delivery by section: COMMENT: POD#2 s/p RLTCS with mild anemia PLAN: Routine postop care Plan for dc home toda Fe supplementation
--- NOTE | 2020-08-27 08:46 | PCM.DC.SUM ---
Providers Date of Admission: 08/25/20 Primary Care Physician: Francesca Primary Care Phys Reason For Visit: REPEAT C SECTION Diagnosis Discharge Diagnosis (1) Delivery by section: Status: Acute Medications at Discharge Home Medications [id number] 1 tab PO DAILY 08/25/20 ferrous sulfate 325 mg PO BID #60 tab NS 08/27/20 ibuprofen 600 mg PO Q6H PRN #30 tab 08/27/20 Hospital Course Operations section Physical Exam Const alert, oriented x3 and no apparent distress Resp normal respiratory effort, normal air movement and clear to auscultation bilaterally Cardio regular rate, regular rhythm, S1 normal heart sound and S2 normal heart sound GI normal to inspection, nondistended, normoactive bowel sounds, soft to palpation, non-tender and non-distended Manual OB Exam: other lochia scant Uterus Palpation: uterus fundus firm Extremity no calf tenderness ABG / Lab / Microbiology Data Result Diagrams: 08/26/20 04:30 D/C Instructions Discharge Diet: No restrictions Discharge Activity: Return to Normal Activity, May not drive while taking narcotic pain medications. and May Shower May resume sexual activity in: 4-6 weeks Weight Bearing Status: Weight bearing as tolerated Call your doctor if your incision/area has: Continuous Slow Oozing, Increased Redness and Foul Smelling Discharge Call your doctor if you observe: Fever of 101 or Higher, Inability to urinate, Inability to have a bowel movement, Using more than one pad per hour, Shortness of breath, Dizziness, Fainting spells, Chest pain and Calf discomfort Cleanse incision/area with: Soap & Water and Keep Dressing Clean & Dry Please Follow Up With: Bel Pugh When: 2 week post operative, 6 week Meaningful Use Info Meaningful Use Diagnoses (Choose all that apply): None applicable Discharge Plan Admission Admit Date/Time: 08/25/20 05:04 Primary Reason for Your Visit: section Attending Provider: Bel Pugh Primary Care Provider: Care Physician,No Primary Instructions Patient Instructions: (), Section () Discharge Orders/Prescriptions Prescriptions: New ibuprofen 600 mg Tablet 600 mg PO Q6H PRN (Reason: pain) Qty: 30 RF: 0 ferrous sulfate 325 mg (65 mg iron) tablet 325 mg PO BID Qty: 60 RF: 0 Continued [id number] 1 mg Tablet 1 tab PO DAILY RF: 0 Referrals / Follow Up: Care Physician,No Primary [Primary Care Provider] - Disposition Disposition (needs filled in before D/C Order can be placed): Home, self care
[2020-08-27] MEDS: Senna/Docusate Sodium 1 Tablet PO (10:46)
== END 2020-08-27 13:15 | disposition home or self-care (01) | DRG 788 ==
PROVIDERS: Obstetrics & Gynecology; Admitting Provider Student in an Organized Health Care Education/Training Program; Visit Provider Student in an Organized Health Care Education/Training Program
PROC: (CPT 59514; principal; 2020-08-25 07:15)
DX: O34.211 Maternal care for low transverse scar from previous cesarean delivery (principal); Z37.0 Single live birth; Z3A.39 39 weeks gestation of pregnancy
CPT/HCPCS: 85025; 85027; 86850; 86900; 86901; 99218; 99251; J7120; A4216; G0378; G0463; J2405

== ENCOUNTER → 2020-10-07 | Outpatient (CLI) | payer BC, SELFPAY ==
[2020-08-25 05:30] VITALS: BMI 26.2
[2020-10-10 03:07] LABS: Chlamydia By Nucleic Acid AMP Negative (Negative)
[2020-10-11 09:58] LABS: Gonococcus By Nucleic Acid AMP Negative (Negative)
[2020-10-12 10:27] LABS: HPV APTIMA, High Risk Negative (Negative)
== END | disposition home or self-care (01) ==
LOC: LABSPEC 13:53
PROVIDERS: Visit Provider Student in an Organized Health Care Education/Training Program
DX: Z12.4 Encounter for screening for malignant neoplasm of cervix (principal); Z11.3 Encounter for screening for infections with a predominantly sexual mode of transmission; Z30.430 Encounter for insertion of intrauterine contraceptive device
CPT/HCPCS: 87491; 87591; 87624; 88175; G0145